=== PATIENT | female | born 1980 | race Caucasian/White ===

== ENCOUNTER → 2018-08-16 11:17 | Outpatient (CLI) | payer OTHER, MEDICAID, SELFPAY ==
[2018-08-16 13:23] LABS: Urine N gonorrhoeae NOT DETECTED
[2018-08-16 13:32] LABS: Urine Chlamydia NOT DETECTED
== END ==
PROVIDERS: Visit Provider Physician Assistant
DX: N89.8 Other specified noninflammatory disorders of vagina (principal); R10.9 Unspecified abdominal pain
CPT/HCPCS: 87210; 87491; 87591

== ENCOUNTER → 2018-10-07 11:10 | Outpatient (CLI) | payer OTHER, MEDICAID, SELFPAY | PROVIDERS: Visit Provider Physician Assistant | DX: N30.00 Acute cystitis without hematuria (principal) | CPT/HCPCS: 87077; 87086; 87186 ==

== ENCOUNTER 2019-12-16 09:45 | Outpatient (RCR) | payer OTHER, MEDICAID, SELFPAY ==
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
--- NOTE | 2019-09-10 15:46 | PT.OPPOC ---
Physical, Occupational & Speech Therapy At [facility] Current Diagnoses Pain in left shoulder (09/10/19) Cervicalgia (09/10/19) Other muscle spasm (09/10/19) Abnormal posture (09/10/19) Weakness (09/10/19) Visit Care Team Role Provider Type Other Providers Specialty: Address: Phone: Fax: Email: Doctor Efren MD Attending Provider Non-Staff Referring Provider Specialty: Medical Address: Phone: Fax: Email: Plan Of Care PT-OP-T Assessment and Plan Start: 09/10/19 07:25 Freq: Status: Active Protocol: Document 09/10/19 13:50 [facility] (Rec: 09/10/19 14:35 [facility] [id number]) Physical Therapy Assessment Goals NDI Impairment 21/50 Short Term Goal (STG) Pt iwll improve NDI to 15/50 to show improved functional ability. STG Duration 10/11/19 Coremaker Bench Goal (LTG) Pt will improve NDI to 2/50 to show improved functional ability. LTG Duration 11/11/19 strength Short Term Goal (STG) Pt will be indep with HEP STG Duration 10/11/19 Coremaker Bench Goal (LTG) Pt will have greater than 4+/5 UE strength B in order to allow her to do typical daily activities without pain and 3/ 5 EFT. LTG Duration 11/11/19 ROM Short Term Goal (STG) Pt iwll improve neck rotation to L by 15 deg to improve functional ability. STG Duration 10/11/19 Coremaker Bench Goal (LTG) Pt will have full ROM in all directions of neck and shoulder in order to be able to do household tasks as needed and be able to turn head for driving. LTG Duration 11/11/19 transfers Impairment painful in/out of bed Short Term Goal (STG) Pt will be able to position comfortably to sleep through the night Jail Goal (LTG) Pt will be able to do in/out of bed without inc pain. Assessment Summary Assessment Pt presents with L UT pain after night of sleeping in odd position that has not gotten better in the past 3 months but just continues to bother her more. She is having difficulty sleeping, driving, and doing all activities with UE. She has pain with all neck motions, thoracic motions and LUE motions & strength testing. She has forwarded rounded posture which likely contributes to these issues. She would benefit from skilled PT to address these deficits. Physical Therapy Plan Frequency and Duration Frequency of Treatment 2x/Week Duration of Treatment 2 months Plan of Care Start Date 09/10/19 Plan of Care End Date 11/11/19 Therapeutic Interventions Therapeutic Interventions Aquatic Therapy,Home Exercise Program,Joint Mobilizations, Manual Therapy,Neuromuscular Re-education,Patient/Caregiver Education,Self-Care/Home Management,Soft Tissue Mobilization,Taping, Therapeutic Activities, Therapeutic Exercises Modalities Cold Pack/Ice Massage,Electric Stimulation,Hot Packs, Infrared Therapy,Iontophoresis ,Traction- Mechanical, Ultrasound Next Visit Focus/Plan Next Note Type Treatment Note Next Visit Plan consider mechanical traction trial, STM to neck & shoulder for pain dec, scap squeezes & depression, wall posture Plan of Care Dates Plan of Care Start Date 09/10/19 Plan of Care End Date 11/11/19 Electronically Signed by: Elle Pérez, PT 09/10/19 [id number] Please Sign and Return: I have reviewed this Plan of Care and certify that the skilled therapy services above are required to meet the patient?s needs. Physician Signature Date Printed Name and Credentials Clinical Instructor Signature Printed Name and Credentials
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
--- NOTE | 2019-11-17 12:20 | PT.OPPOC ---
Physical, Occupational & Speech Therapy At [facility] Current Diagnoses Pain in left shoulder (11/17/19) Cervicalgia (11/17/19) Other muscle spasm (11/17/19) Abnormal posture (11/17/19) Visit Care Team Role Provider Type Doctor MD Efren Referring Provider Non-Staff Specialty: Medical Address: Phone: Fax: Email: Other Providers Specialty: Address: Phone: Fax: Email: Dianna Bonds MD Attending Provider Non-Staff Specialty: Internal Medicine Address: [address] [place] [address] Alessandro [facility], [place], [address] Email: Plan Of Care PT-OP-T Assessment and Plan Start: 09/10/19 07:25 Freq: Status: Active Protocol: Document 11/17/19 09:51 [facility] (Rec: 11/17/19 12:19 [facility] [id number]) Physical Therapy Assessment Goals NDI Impairment /50 Short Term Goal (STG) Pt iwll improve NDI to 15/50 to show improved functional ability. STG Duration achieved Longterm Goal (LTG) Pt will improve NDI to 2/50 to show improved functional ability. 11/16- LTG Duration 12/29/19 strength Short Term Goal (STG) Pt will be indep with HEP STG Duration achieved Public Works Inspector Goal (LTG) Pt will have greater than 4+/5 UE strength B in order to allow her to do typical daily activities without pain and 3/ 5 EFT. 11/16-improved LTG Duration 12/28 ROM Short Term Goal (STG) Pt iwll improve neck rotation to L by 15 deg to improve functional ability. STG Duration achieved Public Works Inspector Goal (LTG) Pt will have full ROM in all directions of neck and shoulder in order to be able to do household tasks as needed and be able to turn head for driving. LTG Duration achieved transfers Impairment painful in/out of bed Short Term Goal (STG) Pt will be able to position comfortably to sleep through the night STG Duration achieved Public Works Inspector Goal (LTG) Pt will be able to do in/out of bed without inc pain. LTG Duration achieved Assessment Summary Assessment Pt is improving with her ROM, strength and functional ability. She is having less c/ o pain at this time. Pt will follow up as needed with PT and cont HEP. Physical Therapy Plan Frequency and Duration Frequency of Treatment 1x/wk Duration of Treatment 6 weeks Plan of Care Start Date 11/17/19 Plan of Care End Date 12/29/19 Therapeutic Interventions Therapeutic Interventions Aquatic Therapy,Home Exercise Program,Joint Mobilizations, Manual Therapy,Neuromuscular Re-education,Patient/Caregiver Education,Self-Care/Home Management,Soft Tissue Mobilization,Taping, Therapeutic Activities, Therapeutic Exercises Modalities Cold Pack/Ice Massage,Electric Stimulation,Hot Packs, Infrared Therapy,Iontophoresis ,Traction- Mechanical, Ultrasound Next Visit Focus/Plan Next Note Type Treatment Note Next Visit Plan work on throacic rotation, scap stability & mobility; PNF , upper thoracic mobility Plan of Care Dates Plan of Care Start Date 11/17/19 Plan of Care End Date 12/29/19 Electronically Signed by: Elle Pérez, PT 11/17/19 [id number] Please Sign and Return: I have reviewed this Plan of Care and certify that the skilled therapy services above are required to meet the patient?s needs. Physician Signature Date Printed Name and Credentials Clinical Instructor Signature Printed Name and Credentials
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
== END 2019-12-17 09:29 | disposition home or self-care (01) ==
LOC: PHYS 09:45
PROVIDERS: Referring Provider Internal Medicine; Visit Provider Internal Medicine
DX: M62.838 Other muscle spasm (principal); M54.2 Cervicalgia; M25.512 Pain in left shoulder; R29.3 Abnormal posture
CPT/HCPCS: 97010; 97012; 97110; 97140; 97162; 97530; 97535